=== PATIENT | female | born 2000 | race Hispanic/Latino ===

== ENCOUNTER 2020-06-14 21:19 | Emergency (ER) | payer OTHER ==
[~2020-06-14] VITALS: Ht 154.9 cm; Wt 54.5 kg
[2020-06-14] MEDS ORDERED: NEXP1IMP SC (22:01)
[2020-06-14] MEDS ORDERED: GI COCKTAIL 50ML BTL(HYOSCYAMINE/MAALOX/LIDOCAINE VISCOUS)(1:3:1) PO ONE (22:15)
[2020-06-14 22:32] LABS: BASO # 0.1 10^3/uL (0.0-0.2); BASO % 0.8 % (0.0-1.0); EOS # 0.4 10^3/uL (0.0-0.5); EOS % 5.2 % (0.0-3.0); HEMATOCRIT 41.9 % (36.0-47.0); HEMOGLOBIN 13.4 g/dl (12.0-15.5); LYMPH # 3.1 10^3/uL (1.5-5.0); LYMPH % 39.5 % (24.0-44.0); MEAN CORPUSCULAR HEMOGLOBIN 29.6 pg (27.0-33.0); MEAN CORPUSCULAR VOLUME 92.7 fl (80.0-96.0); MONO # 0.6 10^3/uL (0.0-0.8); MONO % 8.1 % (0.0-5.0); NEUTROPHILS # 3.7 10^3/uL (1.5-8.5); NEUTROPHILS % 46.1 % (36.0-66.0); PLATELET COUNT, AUTOMATED 279 10^3/uL (150-450); RED BLOOD COUNT 4.52 10^6/uL (4.00-5.40)
[2020-06-14 22:59] LABS: ALBUMIN 3.9 GM/DL (3.2-5.2); ALT/SGPT 19 U/L (12-78); BILIRUBIN,DIRECT < 0.1 MG/DL (0.0-0.2); BILIRUBIN,TOTAL 0.2 MG/DL (0.2-1.0); BLOOD UREA NITROGEN 16 MG/DL (7-18); CALCIUM LEVEL 8.9 MG/DL (8.5-10.1); CARBON DIOXIDE LEVEL 28 MEQ/L (21-32); CHLORIDE LEVEL 107 MEQ/L (98-107); CREATININE FOR GFR 0.82 MG/DL (0.55-1.30); GLOMERULAR FILTRATION RATE > 60.0 (>60); GLUCOSE, FASTING 74 MG/DL (70-100); HCG, SERUM QUALITATIVE NEGATIVE (NEGATIVE); LIPASE 79 U/L (73-393); POTASSIUM SERUM 3.7 MEQ/L (3.5-5.1); SODIUM LEVEL 140 MEQ/L (136-145); TOTAL PROTEIN 7.2 GM/DL (6.4-8.2)
[2020-06-14] MEDS ORDERED: EMVE100C2 PO (23:12)
[2020-06-14 23:40] VITALS: BP 117/74
== END 2020-06-14 23:42 | disposition home or self-care (01) ==
LOC: M ED 21:19
DX: B80 Enterobiasis (principal); R10.9 Unspecified abdominal pain; Z79.3 Long term (current) use of hormonal contraceptives

== ENCOUNTER 2021-03-13 17:42 | Emergency (ER) | payer OTHER ==
[~2021-03-13] VITALS: Ht 154.9 cm; Wt 53.3 kg
[~2021-03-13 17:42] MED LIST: EMVE100C2 PO; NEXP1IMP SC
[2021-03-13] MEDS ORDERED: PREN1CHW PO (17:52)
[2021-03-13 18:20] LABS: HEMATOCRIT 44.3 % (36.0-47.0); HEMOGLOBIN 14.9 g/dl (12.0-15.5); MEAN CORPUSCULAR HEMOGLOBIN 30.3 pg (27.0-33.0); MEAN CORPUSCULAR HGB CONC 33.6 g/dl (32.0-36.5); PLATELET COUNT, AUTOMATED 260 10^3/uL (150-450); RED BLOOD COUNT 4.92 10^6/uL (4.00-5.40); WHITE BLOOD COUNT 8.2 10^3/uL (4.0-10.0)
[2021-03-13 19:40] VITALS: BP 112/74
== END 2021-03-13 20:32 | disposition home or self-care (01) ==
LOC: M ED 17:42
DX: O46.91 Antepartum hemorrhage, unspecified, first trimester (principal); Z3A.01 Less than 8 weeks gestation of pregnancy; Z79.899 Other long term (current) drug therapy

== ENCOUNTER 2021-04-27 10:02 | Day surgery (SDC) | payer OTHER ==
[~2021-04-27] VITALS: Ht 154.9 cm; Wt 54.9 kg
[~2021-04-27 10:02] MED LIST changes: +ACETAMINOPHEN *IV* 1,000 MG IV ONE; +DOXYCYCLINE HYCLATE 100MG TABLET PO ONE; +EMLA CREAM 5GM TUBE (LIDOCAINE/PRILOCAINE) TOP PRN; +LIDOCAINE 1% MDV 20ML VIAL SQ PRN; +LR 1,000 ML IV ONE; +PREN1CHW PO; +antibiotic PO
[2021-04-27 10:49] LABS: HEMATOCRIT 40.2 % (36.0-47.0); HEMOGLOBIN 13.4 g/dl (12.0-15.5); MEAN CORPUSCULAR HEMOGLOBIN 30.1 pg (27.0-33.0); MEAN CORPUSCULAR HGB CONC 33.3 g/dl (32.0-36.5); MEAN CORPUSCULAR VOLUME 90.3 fl (80.0-96.0); PLATELET COUNT, AUTOMATED 201 10^3/uL (150-450); RED BLOOD COUNT 4.45 10^6/uL (4.00-5.40); WHITE BLOOD COUNT 7.6 10^3/uL (4.0-10.0)
[2021-04-27] MEDS ORDERED: fentaNYL 100 MCG/2 ML INJECTION (J3010) As Ordered ONE (12:28)
[2021-04-27] MEDS ORDERED: MIDAZOLAM INJ 2MG/2ML VIAL (J2250 PER 1MG) As Ordered ONE (12:28)
[2021-04-27] MEDS ORDERED: LIDOCAINE 2% 100MG/5ML SDV (FOR ANES.) As Ordered ONE (12:30)
[2021-04-27] MEDS ORDERED: propofoL 200 MG/20 ML VIAL As Ordered ONE (12:30)
[2021-04-27] MEDS ORDERED: ONDANSETRON 4MG/2ML VIAL As Ordered ONE ×2 (12:55→13:34)
[2021-04-27] MEDS ORDERED: ROCURONIUM BROMIDE 50 MG/5 ML VIAL As Ordered ONE (13:05)
[2021-04-27] MEDS ORDERED: ONDANSETRON 4MG/2ML VIAL IV ONE (13:10)
[2021-04-27] MEDS ORDERED: SUCCINYLCHOLINE 100 MG/5 ML SYRINGE (J0330) As Ordered ONE (13:10)
[2021-04-27] MEDS ORDERED: ACETAMINOPHEN 1000MG 100ML IV BTL (OFIRMEV) (J0131 PER 10MG) As Ordered ONE (13:33)
[2021-04-27] MEDS ORDERED: dexameTHASONE 4 MG/ML 1ML VIAL (J1100 PER 1MG) As Ordered ONE (13:34)
[2021-04-27] MEDS ORDERED: METOCLOPRAMIDE INJ 10MG/2ML VIAL (J2765 PER 1) As Ordered ONE (13:34)
[2021-04-27] MEDS ORDERED: KETOROLAC 60MG 2ML VIAL As Ordered ONE (13:34)
[2021-04-27] MEDS ORDERED: SUGAMMADEX SODIUM 500 MG/5 ML VIAL (BRIDION) As Ordered ONE (13:38)
[2021-04-27] MEDS ORDERED: DOXYCYCLINE HYCLATE 200 MG in D5W MINI-BAG PLUS 100 ML IV ONE (13:38)
--- NOTE | 2021-04-27 14:07 | ROOPDOC ---
[facility] Report Of Operation Report of Operation DATE OF PROCEDURE: 04/27/21 PREPROCEDURE DIAGNOSES: Missed at 8 weeks POSTPROCEDURE DIAGNOSES: same as above PROCEDURE PERFORMED: Suction dilation and curettage SURGEON: Shania Ocampo MD ANESTHESIA: general ESTIMATED BLOOD LOSS: Approximately 500 mL, IV F 900mg COMPLICATIONS: none FINDINGS: 8 week anterverteds uterus, patient had 200mg PO of doxyclyine preop, but threw it up. 200mg IV doxycycline given post op. suction dilation wiyth 9mm suction current. 1000mcg of cytotec placed MT for hemostasis. SPECIMENS REMOVED: Production of conception DESCRIPTION OF PROCEDURE: The patient was taken to the operating room where anesthesia was found to be adequate. She was then placed in the high lithotomy position with yellow fin stirrups. An examination under anesthesia was performed with the findings as noted above. The patient was prepped and draped in the usual sterile fashion. A bivalve sterile speculum was placed into the vagina and the anterior lip of the cervix was grasped with a single-tooth tenaculum. The cervix was sequentially dilated with Hanks dilators to 18 Divehi. A 9mm suction curette was then inserted through the cervix into the uterus to the fundus. Suction applied and large amount of tissue obtained from curettage. 4 passed done until just foamy blood was noted. A smooth curette was inserted and a very gentle curettage was performed to remove blood clot. Minimal uterine cry felt. Sharp curettage was avoided due to risk of infertility complications. The cervical os appeared hemostatic after instruments removed. The single-tooth tenaculum was removed from the anterior lip of the cervix and the tenaculum sites were also found to be hemostatic after application of pressure. The speculum was then removed from the vagina and returned to the supine position. 1000mcg of cytotec was placed per MT for continued hemostasis. She was awoken from anesthesia without difficulty and she was taken to the recovery room in stable condition. LORNE FREEMAN MD Apr 27, 2021 14:07
[2021-04-27] MEDS: DOXYCYCLINE HYCLATE 100 MG in D5W MINI-BAG PLUS 100 ML IV SCH ×2 (14:25→15:31)
[2021-04-27] MEDS ORDERED: ONDANSETRON 4MG/2ML VIAL IV PRN (14:30)
[2021-04-27] MEDS ORDERED: HYDROMORPHONE HCL 0.5 MG/ 0.5 ML SYRINGE (J1170 PER 1) IV PRN (14:30)
[2021-04-27] MEDS ORDERED: fentaNYL 100 MCG/2 ML INJECTION (J3010) IV PRN (14:30)
[2021-04-27] MEDS ORDERED: oxyCODONE 5MG TAB PO PRN (14:30)
[2021-04-27] MEDS ORDERED: LR 1,000 ML IV SCH (14:30)
[2021-04-27] MEDS ORDERED: DOXYCYCLINE HYCLATE 200 MG in D5W 250 ML IV ONE (16:00)
[2021-04-27 16:45] VITALS: BP 114/59
== END 2021-04-27 17:05 | disposition home or self-care (01) ==
LOC: M SDC 10:02
PROVIDERS: ATTEND Obstetrics & Gynecology
DX: O02.1 Missed abortion (principal)
CPT/HCPCS: 36415; 59820; 85027; 86850; 86900; 86901; 88305; J0131; J0330; J1100; J1885; J2250; J2405; J2765; J3010

== ENCOUNTER 2021-04-28 13:23 | Emergency (ER) | payer OTHER ==
[~2021-04-28] VITALS: Ht 154.9 cm; Wt 56.2 kg
[2021-04-28 13:23] VITALS: BP 121/66
[~2021-04-28 13:23] MED LIST changes: -ACETAMINOPHEN *IV* 1,000 MG IV ONE; -DOXYCYCLINE HYCLATE 100MG TABLET PO ONE; -EMLA CREAM 5GM TUBE (LIDOCAINE/PRILOCAINE) TOP PRN; -LIDOCAINE 1% MDV 20ML VIAL SQ PRN; -LR 1,000 ML IV ONE
--- NOTE | 2021-04-28 15:58 | REP ---
INDICATION: chest pain, recent intubation COMPARISON: None. TECHNIQUE: PA/Lateral FINDINGS: Lungs: Clear, no infiltrate. Heart: Normal in size. Mediastinum: Mediastinal silhouette unremarkable. Pleural angles: Unremarkable.. Bones and soft tissues: Unremarkable. IMPRESSION: No acute pulmonary disease. <Electronically signed by Ji Alexander > 04/28/21 [id number]
--- NOTE | 2021-04-28 19:12 | ECGEPIP ---
[facility] - ED Test Date: 2021-04-28 Pat Name: HENRIQUE MCMULLEN Department: Room: - Gender: Female Dictaphone Transcriber: IESHA : 2000 Requested By: TAYE CROWDER PA-C. Order Number: [id number] Reading MD: Donna Cueva Measurements Intervals [place] Rate: 71 P: 15 SC: 116 QRS: -17 QRSD: 82 T: 32 QT: 388 QTc: 421 Interpretive Statements Normal sinus rhythm Minimal voltage criteria for LVH, may be normal variant ( R in aVL ) No prior Electronically Signed on 04-28-2021 19:11:59 EDT by Donna Cueva
== END 2021-04-28 16:40 | disposition home or self-care (01) ==
LOC: M ED 13:23
DX: R07.9 Chest pain, unspecified (principal)

== ENCOUNTER 2021-05-25 13:08 | Emergency (ER) | payer OTHER ==
[~2021-05-25] VITALS: Ht 154.9 cm; Wt 58.2 kg
[2021-05-25 21:02] LABS: BASO # 0.1 10^3/uL (0.0-0.2); BASO % 0.7 % (0.0-1.0); EOS # 0.1 10^3/uL (0.0-0.5); HEMOGLOBIN 13.7 g/dl (12.0-15.5); LYMPH % 43.3 % (24.0-44.0); MEAN CORPUSCULAR HEMOGLOBIN 30.3 pg (27.0-33.0); MEAN CORPUSCULAR HGB CONC 32.6 g/dl (32.0-36.5); MEAN CORPUSCULAR VOLUME 92.9 fl (80.0-96.0); MONO # 0.6 10^3/uL (0.0-0.8); MONO % 8.5 % (2.0-8.0); NEUTROPHILS # 3.1 10^3/uL (1.5-8.5); NEUTROPHILS % 45.4 % (36.0-66.0); PLATELET COUNT, AUTOMATED 260 10^3/uL (150-450); RED BLOOD COUNT 4.52 10^6/uL (4.00-5.40); WHITE BLOOD COUNT 6.9 10^3/uL (4.0-10.0)
[2021-05-25 21:20] LABS: ERYTHROCYTE SEDIMENTATION RATE 6 mm/hr (0-20)
--- NOTE | 2021-05-25 23:40 | REPVR ---
PROCEDURE INFORMATION: Exam: US Duplex Right Upper Extremity Veins, Limited Exam date and time: 05/25/2021 10:26 PM Age: 21 years old Clinical indication: Pain; Arm, lower; Prior surgery; Surgery date: 3-7 days post-operative; Surgery type: PT had d&c with iv in right forearm; Additional info: Swelling, erythema, and tenderness to anterior distaforearm TECHNIQUE: Imaging protocol: Real-time Duplex ultrasound of the Right Upper Extremity with 2-D mcguire scale, color Doppler flow and spectral waveform analysis with image documentation. Limited exam focused on the right upper extremity veins. COMPARISON: No relevant prior studies available. FINDINGS: Right deep veins: Unremarkable. Axillary and brachial veins are patent throughout without thrombus. Normal Doppler waveforms. Normal compressibility and/or augmentation response. Visualized internal jugular and subclavian veins are patent. Right superficial veins: Unremarkable. Visualized cephalic and basilic veins are patent without thrombus. Soft tissues: Unremarkable. Other findings: There is thrombus noted in a vein of the distal forearm or wrist at the site of an IV. IMPRESSION: 1. Thrombus is noted in a vein of the distal forearm or wrist at the site of a previous IV. 2. Negative right upper extremity venous duplex exam without evidence of deep venous thrombosis. Electronically signed by: Saravanan Darling On 05/25/2021 23:39:50 PM
[2021-05-26 00:01] VITALS: BP 114/81
== END 2021-05-26 00:02 | disposition home or self-care (01) ==
LOC: M ED 13:08
DX: I82.611 Acute embolism and thrombosis of superficial veins of right upper extremity (principal)